=== PATIENT | female | born 1975 | race Caucasian/White ===

== ENCOUNTER → 2017-06-20 12:33 | Outpatient (CLI) | payer OTHER, SELFPAY ==
--- NOTE | 2017-06-20 | DI.MRI.S_ITS ---
PROCEDURE: MRFOOT LT WO CON INDICATIONS: LEFT FOOT PAIN TECHNIQUE: Noncontrast sagittal T1 spin echo and T2 fast spin echo with fat saturation, long-axis T1 spin echo and T2 fast spin echo with fat saturation, short-axis T1 spin echo and T2 fast spin echo with fat saturation through the forefoot. COMPARISON: None. FINDINGS: Image quality: Diagnostic. Bones and joints: No acute fracture, dislocation, or suspicious osseous lesion is identified involving the osseous structures of the left midfoot or forefoot. At least moderate degenerative changes are noted involving the tarsometatarsal joints, which are more prominent involving the medial tarsometatarsal joints. There also are mild degenerative changes present involving the 1st metatarsophalangeal joint. No hallux valgus deformity is evident. No significant joint effusions are appreciated. Soft tissues: The visualized plantar foot muscles demonstrate normal signal and bulk. Visualized flexor and extensor tendons appear intact, without tenosynovitis. The distal insertions of the peroneus brevis and longus tendons appear intact. The principal Lisfranc ligament appears intact. No soft tissue ganglion cysts or bursal fluid collections. Sagittal images demonstrate no evidence for plantar plate tears. Lisfranc ligament is not well seen, but appears to be thickened and intact. No soft tissue masses are evident. IMPRESSION: 1. 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 2. Mild degenerative changes of the 1st metatarsophalangeal joint. Dictated by: Ion Barroso M.D. on 06/20/2017 at 13:51 Approved by: Ion Barroso M.D. on 06/20/2017 at 13:54
== END ==
PROVIDERS: Visit Provider Family Medicine
DX: M19.072 Primary osteoarthritis, left ankle and foot (principal)
CPT/HCPCS: 73718